=== PATIENT | female | born 1960 | race African-American/Black ===

== ENCOUNTER 2017-11-19 15:58 | Emergency (ER) | payer OTHER, MEDICAID ==
[2017-11-19 16:07] VITALS: BP 188/86; BMI 51.5
[2017-11-19 17:01] LABS: BILIRUBIN,URINE NEGATIVE (NEGATIVE); BLOOD/HEMOGLOBIN,URINE NEGATIVE (NEGATIVE); GLUCOSE, URINE NEGATIVE (NEGATIVE); KETONES,URINE NEGATIVE (NEGATIVE); LEUKOCYTE ESTERASE ,URINE NEGATIVE (NEGATIVE); NITRITES,URINE NEGATIVE (NEGATIVE); PROTEIN,URINE NEGATIVE (NEGATIVE); UROBILINOGEN,URINE NORMAL (NORMAL)
[2017-11-19 17:03] LABS: APPEARANCE,URINE CLEAR (CLEAR); COLOR,URINE YELLOW (YELLOW)
--- NOTE | 2017-11-19 17:22 | DR.GENAD ---
HPI - PCP Primary Care Physician: nati - Complaint/Symptoms Chief Complaint Doctors Comments: Patient reporst that she had a cholecystectomy three months ago, at the time she states that she had shingles. Thinks that the right side pain might be due to the shingles. She denies dysuria or visible cutaneous eruptions. Chief Complaint:: "hurting on right side may have shingles" - Source History Provided: Patient - Mode of Arrival Mode of Arrival: Ambulatory - Timing Onset of Chief Complaint: 11/18/17 PMH - PMH Past Medical History: Yes Past Medical History: Arthritis, COPD, Hypertension, Sleep Apnea Past Medical History Comment: shingles, Past Surgical History: Yes Surgical History: Hysterectomy Past Surgical History Comment: spinal fushion, both knee - Family History History of Family Medical Conditions: Yes Family Medical History: Diabetes Mellitus, Cancer, Heart Failure, Hypertension - Social History Does patient currently use any type of tobacco product: No Have you used tobacco products in the last 12 months: No Type of Tobacco Use: None Does any household member use tobacco: No Alcohol Use: None Do you use any recreational Drugs:: No Lives With: Family Lives Where: Home - infectious screening In the last 2 months have you had wt loss of >10#?: NO Have you had fever, night sweats or hemotysis?: No Have you traveled outside the country in the last 6 months?: No Isolation: Standard PE - Vital Signs Vitals: Temperature 97.7 F Pulse Rate 66 Respiratory Rate 18 Blood Pressure 188/86 O2 Sat by Pulse Oximetry 97 ROR - Labs Reviewed Result Diagrams: 11/19/17 17:32 11/19/17 17:32 Laboratory: WBC 5.7 X10^3/uL (3.6-10.0) 11/19/17 17:32 RBC 3.60 X10^6/uL (3.5-5.4) 11/19/17 17:32 Hgb 11.5 g/dL (12.0-16.0) L 11/19/17 17:32 Hct 34.0 % (36.0-47.0) L 11/19/17 17:32 MCV 94.6 fL (80.0-100.0) 11/19/17 17:32 MCH 32.0 pg (27.0-34.0) 11/19/17 17:32 MCHC 33.8 g/dL (33.0-35.0) 11/19/17 17:32 RDW 13.8 % (11.6-16.5) 11/19/17 17:32 Plt Count 151 X10^3/uL (150.0-450.0) 11/19/17 17:32 MPV 9.1 fL (7.4-11.0) 11/19/17 17:32 Neut % (Auto) 65.3 % (42.0-75.0) 11/19/17 17:32 Lymph % (Auto) 23.2 % (21.0-51.0) 11/19/17 17:32 [place] % (Auto) 8.2 % (0.0-13.0) 11/19/17 17:32 Eos % (Auto) 2.7 % (0.9-2.9) 11/19/17 17:32 Baso % (Auto) 0.6 % (0.2-1.0) 11/19/17 17:32 Neut # (Auto) 3.7 x10^3/uL (2.2-4.8) 11/19/17 17:32 Lymph # (Auto) 1.3 X10^3/uL (1.3-2.9) 11/19/17 17:32 [place] # (Auto) 0.5 x10^3/uL (0.3-0.8) 11/19/17 17:32 Eos # (Auto) 0.2 x10^3/uL (0.0-0.2) 11/19/17 17:32 Baso # (Auto) 0.0 X10^3/uL (0.0-0.1) 11/19/17 17:32 Absolute Nucleated RBC 0.0 /100WBC 11/19/17 17:32 Sodium 141 mmol/L (136-145) 11/19/17 17:32 Corrected Sodium TNP 11/19/17 17:32 Potassium 4.3 mmol/L (3.5-5.1) 11/19/17 17:32 Chloride 108 mmol/L (98-107) H 11/19/17 17:32 Carbon Dioxide 27.9 mmol/L (21-32) 11/19/17 17:32 BUN 24 mg/dL (7-18) H 11/19/17 17:32 Creatinine 0.94 mg/dL (0.55-1.02) 11/19/17 17:32 Est GFR (MDRD) Af Amer > 60 (>60) 11/19/17 17:32 Est GFR (MDRD) Non-Af > 60 (>60) 11/19/17 17:32 Glucose 99 mg/dL (65-99) 11/19/17 17:32 Calcium 8.5 mg/dL (8.5-10.1) 11/19/17 17:32 C-Reactive Protein 1.80 mg/L (0-3.0) 11/19/17 17:32 Specimen Type Random urine 11/19/17 16:52 Urine Color Yellow (YELLOW) 11/19/17 16:52 Urine Appearance Clear (CLEAR) 11/19/17 16:52 Urine pH 8.0 (5.0 - 8.0) 11/19/17 16:52 Ur Specific [place] 1.010 (1.000-1.030) 11/19/17 16:52 Urine Protein Negative (NEGATIVE) 11/19/17 16:52 Urine Glucose (UA) Negative (NEGATIVE) 11/19/17 16:52 Urine Ketones Negative (NEGATIVE) 11/19/17 16:52 Urine Occult Blood Negative (NEGATIVE) 11/19/17 16:52 Urine Nitrite Negative (NEGATIVE) 11/19/17 16:52 Urine Bilirubin Negative (NEGATIVE) 11/19/17 16:52 Urine Urobilinogen Normal (NORMAL) 11/19/17 16:52 Ur Leukocyte Esterase Negative (NEGATIVE) 11/19/17 16:52 - Diagnosis Discharge Problem: Dehydration, mild - Discharge Plan Condition: Stable - Follow ups/Referrals Follow ups/Referrals: Selma Pride [Primary Care Provider] - 3 days - Instructions
[2017-11-19 17:42] LABS: BASOPHILS % (AUTO) 0.6 % (0.2-1.0); EOSINOPHILS # (AUTO) 0.2 x10^3/uL (0.0-0.2); EOSINOPHILS % (AUTO) 2.7 % (0.9-2.9); HEMOGLOBIN 11.5 g/dL (12.0-16.0); LYMPHOCYTES # (AUTO) 1.3 X10^3/uL (1.3-2.9); LYMPHOCYTES % (AUTO) 23.2 % (21.0-51.0); MEAN CORPUSCULAR HGB CONC 33.8 g/dL (33.0-35.0); MEAN CORPUSCULAR VOLUME 94.6 fL (80.0-100.0); MEAN PLATELET VOLUME 9.1 fL (7.4-11.0); MONOCYTES # (AUTO) 0.5 x10^3/uL (0.3-0.8); MONOCYTES % (AUTO) 8.2 % (0.0-13.0); NEUTROPHILS # (AUTO) 3.7 x10^3/uL (2.2-4.8); NEUTROPHILS % (AUTO) 65.3 % (42.0-75.0); PLATELET COUNT 151 X10^3/uL (150.0-450.0); RED CELL DISTRIBUTION WIDTH 13.8 % (11.6-16.5); WHITE BLOOD COUNT 5.7 X10^3/uL (3.6-10.0)
[2017-11-19 18:04] LABS: BLOOD UREA NITROGEN 24 mg/dL (7-18); CALCIUM 8.5 mg/dL (8.5-10.1); CARBON DIOXIDE 27.9 mmol/L (21-32); CHLORIDE 108 mmol/L (98-107); CREATININE 0.94 mg/dL (0.55-1.02); SODIUM 141 mmol/L (136-145); eGFR BLACK RACES > 60 (>60); eGFR NON BLACK RACES > 60 (>60)
--- NOTE | 2017-11-19 20:01 | RAD ---
HISTORY: Back pain Study: 3 views of the thoracic spine. Comparison: None Findings: Grossly normal alignment of the thoracic spine. Mild multilevel degenerative disc disease.. Vertebra l body heights are grossly maintained. IMPRESSION: 1. Mild multilevel degenerative disc disease. Reported By:
== END 2017-11-19 20:36 | disposition home or self-care (01) ==
LOC: ER 16:42
DX: E86.0 Dehydration (principal)
CPT/HCPCS: 36415; 72072; 80048; 81003; 85025; 86140; 99282